=== PATIENT | female | born 1995 | race Caucasian/White ===

== ENCOUNTER 2017-06-16 12:42 | Emergency (ER) | payer OTHER ==
[~2017-06-16] VITALS: Ht 172.7 cm; Wt 72.7 kg
[2017-06-16] MEDS ORDERED: PREN0.01 PO (12:58)
[2017-06-16] MEDS ORDERED: NS 1,000 ML IV ONE (16:00)
[2017-06-16 16:36] LABS: BASO % 0.2 % (0.0-1.0); EOS # 0.2 10^3/uL (0.0-0.50); IMMATURE GRANULOCYTE % 0.4 % (0-0); LYMPH # 1.4 10^3/uL (1.5-6.5); LYMPH % 16.2 % (24.0-44.0); MEAN CORPUSCULAR HEMOGLOBIN 28.1 pg (27.0-33.0); MEAN CORPUSCULAR HGB CONC 32.8 g/dl (32.0-36.5); MEAN CORPUSCULAR VOLUME 85.8 fl (80.0-96.0); MONO # 0.6 10^3/uL (0.0-0.8); NEUTROPHILS # 6.3 10^3/uL (1.8-7.7); NEUTROPHILS % 74.2 % (36.0-66.0); PLATELET COUNT, AUTOMATED 205 10^3/uL (150-450); RED CELL DISTRIBUTION WIDTH 12.1 % (11.5-14.5); WHITE BLOOD COUNT 8.4 10^3/uL (4.0-10.0)
--- NOTE | 2017-06-16 16:39 | REP ---
FIRST TRIMESTER ULTRASOUND: Real-time sonographic evaluation of the gravid uterus is performed. There is a single living intrauterine gestation with estimated gestational age of 8 weeks based on crown-rump length of 16 mm. EDC 01/26/2018. heart rate 160 beats per minute. There is no subchronic hemorrhage. There is no evidence of ovarian torsion. Signed by Mart Bridges MD 06/16/2017 05:23 P
[2017-06-16 16:45] LABS: ADD MORPHOLOGY? NO
[2017-06-16 17:23] LABS: ALBUMIN 3.6 GM/DL (3.2-5.2); ALBUMIN/GLOBULIN RATIO 1.06 (1.00-1.93); ALKALINE PHOSPHATASE 54 U/L (45-117); ALT/SGPT 16 U/L (12-78); ANION GAP 7 MEQ/L (8-16); AST/SGOT 9 U/L (15-37); BILIRUBIN,DIRECT 0.1 MG/DL (0.0-0.2); BILIRUBIN,TOTAL 0.3 MG/DL (0.2-1.0); BLOOD UREA NITROGEN 6 MG/DL (7-18); CALCIUM LEVEL 8.6 MG/DL (8.5-10.1); CARBON DIOXIDE LEVEL 26 MEQ/L (21-32); CHLORIDE LEVEL 104 MEQ/L (98-107); CREATININE FOR GFR 0.57 MG/DL (0.55-1.02); GLOMERULAR FILTRATION RATE > 60.0 (>60); GLUCOSE, FASTING 107 MG/DL (70-105); HCG, SERUM QUANTITATIVE 84487 MIU/ML; MAGNESIUM LEVEL 2.2 MG/DL (1.8-2.4); POTASSIUM SERUM 4.5 MEQ/L (3.5-5.1); SODIUM LEVEL 137 MEQ/L (136-145)
[2017-06-16 19:04] VITALS: BP 122/58
--- NOTE | 2017-06-17 08:27 | ECGEPIP ---
Stationary ECG Study [facility] - ED Test Date: 2017-06-16 Pat Name: KEVIN WEISS Department: Room: - Gender: F Sausage Linker: amairani : [id number] Requested By: JEROMY LLOYD PA-C. Order Number: [id number] Reading MD: Kishor Corona Measurements Intervals [place] Rate: 57 P: 14 ID: 180 QRS: 30 QRSD: 84 T: 15 QT: 404 QTc: 394 Interpretive Statements SINUS BRADYCARDIA NSTTW ABNORMALITIES NO PRIORS Electronically Signed On 06-17-2017 8:27:31 EDT by Kishor Corona
== END 2017-06-16 19:07 | disposition home or self-care (01) ==
LOC: M ED 12:42
DX: O26.891 Other specified pregnancy related conditions, first trimester (principal); R55 Syncope and collapse; Z3A.10 10 weeks gestation of pregnancy